=== PATIENT | male | born 1990 | race Hispanic/Latino ===

== ENCOUNTER 2024-02-23 05:47 | Emergency (ER) | payer SELFPAY ==
[2024-02-23] MEDS ORDERED: Famotidine 20 MG TAB ONE (06:09)
[2024-02-23] MEDS ORDERED: diphenhydrAMINE 25 MG CAP ONE (06:09)
[2024-02-23] MEDS ORDERED: methylPREDNISolone Sod Succ/PF 125 MG/2 ML VIAL ONE (06:09)
== END 2024-02-23 06:47 | disposition home or self-care (01) ==
LOC: NAV ERS 05:47
DX: L25.9 Unspecified contact dermatitis, unspecified cause (principal); J02.9 Acute pharyngitis, unspecified; R05.9 Cough, unspecified
CPT/HCPCS: 96372; 99283; J2919